=== PATIENT | female | born 1985 | race African-American/Black ===

== ENCOUNTER 2020-10-15 17:37 | Emergency (ER) | payer SELFPAY ==
[~2020-10-15] VITALS: Ht 177.8 cm; Wt 81.6 kg
[2020-10-15] MEDS ORDERED: Morphine Sulfate 4mg/ml Inj (IV USE ONLY) IVP ONE ×2 (18:00→20:15)
[2020-10-15] MEDS ORDERED: Morphine Sulfate 4mg/ml Inj (IV USE ONLY) ONE (18:15)
[2020-10-15] MEDS ORDERED: DiphenhydrAMINE 50mg/ml Inj IVP ONE ×3 (18:30→20:30)
[2020-10-15 18:41] LABS: ANION GAP 11 mmol/L (5-15); BLOOD UREA NITROGEN 11 mg/dL (7-18); CALCIUM 9.3 MG/DL (8.5-10.1); CARBON DIOXIDE 22 MMOL/L (21-32); CHLORIDE 107 MMOL/L (98-107); CREATININE 0.6 MG/DL (0.55-1.30); POTASSIUM 5.3 MMOL/L (3.5-5.1); SODIUM 140 MMOL/L (136-145)
[2020-10-15 18:45] LABS: ALANINE AMINOTRANSFERASE 32 U/L (12-78); ALBUMIN 3.4 G/DL (3.4-5.0); ALBUMIN/GLOBULIN RATIO 0.7 (1.0-2.7); ALKALINE PHOSPHATASE 61 U/L (46-116); ASPARTATE AMINO TRANSFERASE 53 U/L (15-37); BASOPHILS % (AUTO) 1.8 % (0.0-2.0); BILIRUBIN,TOTAL 0.3 MG/DL (0.2-1.0); EOSINOPHILS % (AUTO) 1.5 % (0.0-3.0); HEMATOCRIT 33.3 % (37.0-47.0); HEMOGLOBIN 10.1 G/DL (12.0-16.0); MEAN CORPUSCULAR VOLUME 71 FL (80-99); MONOCYTES % (AUTO) 8.6 % (1.0-10.0); PLATELET COUNT 256 K/UL (150-450); RED BLOOD COUNT 4.71 M/UL (4.20-5.40); RED CELL DISTRIBUTION WIDTH 18.8 % (11.6-14.8); WHITE BLOOD COUNT 4.8 K/UL (4.8-10.8)
[2020-10-15] MEDS ORDERED: Solu-MEDROL 125mg Inj IVP ONE (19:00)
[2020-10-15] MEDS ORDERED: Omnipaque-300 100ml vial INJ ONE (19:00)
[2020-10-15] MEDS ORDERED: Solu-MEDROL 125mg Inj ONE (19:02)
[2020-10-15] MEDS ORDERED: DiphenhydrAMINE 50mg/ml Inj ONE (19:02)
--- NOTE | 2020-10-15 19:15 | NUR ---
ED Nurse Note: Recieved report from amnurse to resume care, pt is ambulating in hallway, awake, alert and oriented x 4, pt here with c/o pain to buttocks area s/p transplant injections, pt denies chest pain, sob, or any other complaitns, ambulates well with steady gait, pt has patent IV site in left back of forearm, fluids infusing, tolerating well, will resume care, assist back to bed and monitoring, pt waiting for imaging results and disposition, pt reports pain at 7/10 and recently medicated, will continue to monitor for effectiveness.
--- NOTE | 2020-10-15 19:55 | Diagnostic Imaging Report ---
EXAM: CT Pelvis With Intravenous Contrast CLINICAL HISTORY: PAIN TECHNIQUE: Axial computed tomography images of the pelvis with intravenous contrast. CTDI is 10.4 mGy and DLP is 432.3 mGy-cm. One or more of the following dose reduction techniques were used: automated exposure control, adjustment of the mA and/or kV according to patient size, use of iterative reconstruction technique. COMPARISON: None FINDINGS: Bowel: Unremarkable. No obstruction. No mucosal thickening. Appendix: Prior appendectomy. Intraperitoneal space: Unremarkable. No free air. No significant fluid collection. Bladder: Unremarkable. No mass. Reproductive: Probable collapsing cysts in the right ovaries. Bones/joints: No acute fracture or dislocation. Soft tissues: Prominent soft tissue densities and nodularities in the gluteal soft tissues, suggestive of postsurgical changes/injections. Umbilical piercing. Small fat-containing umbilical hernia. Vasculature: Unremarkable. No lower abdominal aortic aneurysm. Lymph nodes: Unremarkable. No enlarged lymph nodes. IMPRESSION: 1. No acute fracture or dislocation. 2. Prominent soft tissue densities and nodularities in the gluteal soft tissues, suggestive of postsurgical changes/injections. <MYCVCSECTION> Communications: 10/15/20 20:01 Call From [facility] Yessica ZELAYA on 10/15 20:01 (-08:00)
[2020-10-15] MEDS ORDERED: PERCOCET 5-3251 EACH ORAL (20:13)
[2020-10-15] MEDS ORDERED: BACTRIM DS TAB1 EAC1 ORAL (20:13)
--- NOTE | 2020-10-15 20:30 | NUR ---
ER DISCHARGE NOTE: Patient is cleared to be discharged per ERMD, pt is aox4, on room air, with stable vital signs. pt was given dc and prescription instructions, pt was able to verbalize understanding, pt id band and iv site removed without complications. pt is able to ambulate with steady gait. pt took all belongings.
--- NOTE | 2020-10-15 21:20 | Emergency Room Report ---
History of Present Illness General Chief Complaint: Nausea Source: Patient Present Illness HPI 35-year-old female presents for nausea and vomiting. Also states she is got pain in her buttock. Brought in by EMS. States that 2 days ago she received injections in her buttocks from a "doctor" that flew in from [place]. States it was hydrogel that was injected. States he was recommended by a friend. States that she is been having extreme pain since. 10 out of 10, throbbing, nonradiating. Denies fevers or chills. Notes nausea and vomiting. No other aggravating relieving factors. Denies any other associated symptoms Allergies: Coded Allergies: KETOROLAC (Verified Allergy, Unknown, 10/15/20) METOCLOPRAMIDE (Verified Allergy, Unknown, 10/15/20) COVID-19 Screening Contact w/high risk pt: No Experienced COVID-19 symptoms?: No COVID-19 Testing performed [employer]PER[employer] RADIAL: No COVID-19 Screening: Negative COVID-19 COVID-19 Testing Source: unk Patient History Past Medical History: none Past Surgical History: none Pertinent Family History: none Social History: Denies: smoking, alcohol use, drug use Last Menstrual Period: 1-30 Now: No Immunizations: UTD Reviewed Nursing Documentation: PMH: Agreed; PSxH: Agreed Nursing Documentation-PMH Past Medical History Deferred: Pt Cognitively Impaired Past Medical History: No Stated History Review of Systems All Other Systems: negative except mentioned in HPI Physical Exam Vital Signs Date Time Temp Pulse Resp B/P (MAP) Pulse Ox O2 Delivery O2 Flow Rate FiO2 10/15/20 17:31 98.1 80 20 108/71 (83) 95 Room Air Sp02 EP Interpretation: reviewed, normal General Appearance: no apparent distress, alert, GCS 15, non-toxic Head: normocephalic, atraumatic Eyes: bilateral eye normal inspection, bilateral eye PERRL ENT: hearing grossly normal, normal pharynx, no angioedema, normal voice Neck: full range of motion, supple/symm/no masses Respiratory: chest non-tender, lungs clear, normal breath sounds, speaking full sentences Cardiovascular #1: regular rate, rhythm, no edema Cardiovascular #2: 2+ carotid (R), 2+ carotid (L), 2+ radial (R), 2+ radial (L), 2+ dorsalis pedis (R), 2+ dorsalis pedis (L) Gastrointestinal: normal bowel sounds, non tender, soft, non-distended, no guarding, no rebound Rectal: deferred Genitourinary: normal inspection, no CVA tenderness Musculoskeletal: back normal, normal range of motion, gait/station normal, non- tender Neurologic: alert, motor strength/tone normal, oriented x3, sensory intact, responsive, speech normal Psychiatric: judgement/insight normal, memory normal, mood/affect normal, no suicidal/homicidal ideation Reflexes: 3+ bicep (R), 3+ bicep (L), 3+ tricep (R), 3+ tricep (L), 3+ knee (R), 3+ knee (L) Skin: other - Tenderness to palpation to bilateral buttocks. Nodularity appreciated. No induration or erythema. No fluctuance or discharge Lymphatic: no adenopathy Medical Decision Making Diagnostic Impression: Primary Impression: Postoperative pain ER Course Hospital Course 35-year-old female presents with nausea and vomiting and pain to the buttock. Received injections to the buttock to days ago Differential diagnosis includes- allergic reaction, abscess, cellulitis Clinical course Patient placed on stretcher. After initial history and physical I ordered labs, IV fluids, pain medications and CT scan Labs - no leukocytosis, electrolytes ok CT scan shows nodularity and inflammatory changes in the buttock bilaterally. No signs of abscess On reassessment pain improved. I discussed findings with patient. Will discharge home on antibiotics. Given copy of CT report. States she will follow-up with her PMD I feel this is a highly complex case requiring extensive working including EKG/Rhythm strip, Xray/CT/US, Blood/urine lab work, repeat exams while in ED, and administration of strong opiates/narcotics for pain control, admission to hospital or close patient follow up. Diagnosis - postoperative pain Stable and discharged to home with Rx Bactrim, Percocet. Followup with PMD. Return to ED if symptoms recur or worsen Laboratory Tests Test 10/15/20 18:11 White Blood Count 4.8 K/UL (4.8-10.8) Red Blood Count 4.71 M/UL (4.20-5.40) Hemoglobin 10.1 G/DL (12.0-16.0) L Hematocrit 33.3 % (37.0-47.0) L Mean Corpuscular Volume 71 FL (80-99) L Mean Corpuscular Hemoglobin 21.5 PG (27.0-31.0) L Mean Corpuscular Hemoglobin Concent 30.4 G/DL (32.0-36.0) L Red Cell Distribution Width 18.8 % (11.6-14.8) H Platelet Count 256 K/UL (150-450) Mean Platelet Volume 7.0 FL (6.5-10.1) Neutrophils (%) (Auto) 49.0 % (45.0-75.0) Lymphocytes (%) (Auto) 39.0 % (20.0-45.0) Monocytes (%) (Auto) 8.6 % (1.0-10.0) Eosinophils (%) (Auto) 1.5 % (0.0-3.0) Basophils (%) (Auto) 1.8 % (0.0-2.0) Sodium Level 140 MMOL/L (136-145) Potassium Level 5.3 MMOL/L (3.5-5.1) H Chloride Level 107 MMOL/L (98-107) Carbon Dioxide Level 22 MMOL/L (21-32) Anion Gap 11 mmol/L (5-15) Blood Urea Nitrogen 11 mg/dL (7-18) Creatinine 0.6 MG/DL (0.55-1.30) Estimat Glomerular Filtration Rate > 60 mL/min (>60) Glucose Level 74 MG/DL (74-106) Calcium Level 9.3 MG/DL (8.5-10.1) Total Bilirubin 0.3 MG/DL (0.2-1.0) Aspartate Amino Transf (AST/SGOT) 53 U/L (15-37) H Alanine Aminotransferase (ALT/SGPT) 32 U/L (12-78) Alkaline Phosphatase 61 U/L (46-116) Total Protein 8.4 G/DL (6.4-8.2) H Albumin 3.4 G/DL (3.4-5.0) Globulin 5.0 g/dL Albumin/Globulin Ratio 0.7 (1.0-2.7) L Lipase 184 U/L (73-393) CT/MRI/US Diagnostic Results CT/MRI/US Diagnostic Results : Imaging Test Ordered: CT Pelvis Impression Procedure: CT Pelvis w Contrast EXAM: CT Pelvis With Intravenous Contrast CLINICAL HISTORY: PAIN TECHNIQUE: Axial computed tomography images of the pelvis with intravenous contrast. CTDI is 10.4 mGy and DLP is 432.3 mGy-cm. One or more of the following dose reduction techniques were used: automated exposure control, adjustment of the mA and/or kV according to patient size, use of iterative reconstruction technique. COMPARISON: None FINDINGS: Bowel: Unremarkable. No obstruction. No mucosal thickening. Appendix: Prior appendectomy. Intraperitoneal space: Unremarkable. No free air. No significant fluid collection. Bladder: Unremarkable. No mass. Reproductive: Probable collapsing cysts in the right ovaries. Bones/joints: No acute fracture or dislocation. Soft tissues: Prominent soft tissue densities and nodularities in the gluteal soft tissues, suggestive of postsurgical changes/injections. Umbilical piercing. Small fat-containing umbilical hernia. Vasculature: Unremarkable. No lower abdominal aortic aneurysm. Lymph nodes: Unremarkable. No enlarged lymph nodes. IMPRESSION: 1. No acute fracture or dislocation. 2. Prominent soft tissue densities and nodularities in the gluteal soft tissues, suggestive of postsurgical changes/injections. <MYCVCSECTION> Communications: 10/15/20 20:[address] [facility] Yessica ZELAYA on 10/15 20:01 (-08:00) Last Vital Signs Date Time Temp Pulse Resp B/P (MAP) Pulse Ox O2 Delivery O2 Flow Rate FiO2 10/15/20 19:12 Room Air 10/15/20 17:31 98.1 80 20 108/71 (83) 95 Status: improved Disposition: HOME, SELF-CARE Condition: Stable Scripts Trimethoprim/Sulfamethoxazole 160/800* (BACTRIM DS TABLET*) 1 Each Tablet 1 TAB ORAL Q12H, #14 TAB 0 Refills Prov: Tomi Juan MD 10/15/20 Oxycodone/Acetaminophen 5-325* (PERCOCET 5-325 MG TABLET*) 1 Each Tablet 1 TAB ORAL Q6H PRN for For Pain, #12 TAB Prov: Tomi Juan MD 10/15/20 Referrals: NOT CHOSEN IPA/,REFERRING (PCP) Patient Instructions: Post-Injection Inflammatory Reaction Tomi Juan MD Oct 15, 2020 21:20
[2020-10-15 21:47] VITALS: BP 108/71
== END 2020-10-15 20:40 | disposition home or self-care (01) ==
LOC: EDBD 17:37 → EMR 19:07
DX: G89.18 Other acute postprocedural pain (principal); Z88.8 Allergy status to other drugs, medicaments and biological substances; K42.9 Umbilical hernia without obstruction or gangrene
CPT/HCPCS: 36415; 72193; 80053; 83690; 85025; 96361; 96374; 96375; 96376; 99284; J1200; J2270; J2405; J2930; Q9967; S0028